=== PATIENT | female | born 1970 | race Caucasian/White ===

== ENCOUNTER → 2023-05-05 13:53 | Outpatient (REF) | payer BC, SELFPAY | LOC: HWRAD 13:53 | PROVIDERS: ATTENDING PHYSICIAN Family Medicine | DX: M25.551 Pain in right hip (principal); M54.41 Lumbago with sciatica, right side; G89.29 Other chronic pain | CPT/HCPCS: 72110; 73502 ==

== ENCOUNTER → 2024-05-23 12:02 | Outpatient (REF) | payer BC, SELFPAY | LOC: WDC 12:02 | PROVIDERS: ATTENDING PHYSICIAN Obstetrics & Gynecology; FAMILY PHYSICIAN Family Medicine | DX: Z12.31 Encounter for screening mammogram for malignant neoplasm of breast (principal) | CPT/HCPCS: 77063; 77067 ==